=== PATIENT | female | born 2000 | race Caucasian/White ===

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

== ENCOUNTER → 2021-01-27 14:30 | Outpatient (CLI) | payer BC, OTHER, SELFPAY ==
--- NOTE | ~2021-01-27 | XR_ITS ---
EXAMINATION: XR chest 2V EXAM DATE: 01/27/2021 15:10 INDICATION: Tight chest, other chest pain . TECHNIQUE: Frontal and lateral projections of the chest obtained and reviewed. Comparison is made to prior examination from 10/22/2020. FINDINGS: Resolution of previously seen right upper lobe acute airspace disease. The lungs are clear . There are no pleural effusions. The cardiomediastinal silhouette is within normal limits. There is no pneumothorax suspected. The bones and soft tissues are unremarkable. IMPRESSION: No acute cardiopulmonary findings. Reviewed, dictated and finalized at location B.
== END ==
PROVIDERS: PCP Physician Assistant; Visit Provider Physician Assistant
DX: R07.89 Other chest pain (principal)
CPT/HCPCS: 71046

== ENCOUNTER 2021-05-17 12:19 | Emergency (ER) | payer BC, SELFPAY ==
--- NOTE | ~2021-05-17 | CT_ITS ---
EXAMINATION: CT abdomen pelvis w con DATE: 05/17/2021 19:24 INDICATION: Right lower quadrant abdominal pain. TECHNIQUE: Computed tomography (CT) of the abdomen and pelvis was performed with 100 mL Omnipaque-350 intravenous contrast. Automated exposure control and iterative reconstruction technique were employe d. The dose-length product was 515.29 mGy-cm. COMPARISON: None FINDINGS: Lung bases are clear. Heart size is normal. No pericardial or pleural effusion. Liver, gallbladder, s pleen, pancreas, bilateral adrenal glands and kidneys are normal. 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 Normal appendix. No bowel obstruction. Retroverted uterus, bilater al adnexa and decompressed bladder are unremarkable. Tiny amount of likely physiologic free fluid in the cul-de-sac. No abscess or free intraperitoneal gas. No pathologically enlarged abdominal or pelvi c lymphadenopathy. The major vessels in the abdomen and pelvis are unremarkable. Mild lumbar levocurv ature. Asymmetric bilateral sacroiliitis, left greater than right. IMPRESSION: 1. Normal appendix. No acute intra-abdominal/pelvic process. 2. Asymmetric left-sided predominant bilateral sacroiliitis. Differential would include psoriatic or reactive arthritis, gout and osteoarthritis. Differential would also include enteropathic arthritis i n severity of Crohn's or ulcerative colitis, ankylosing spondylitis and rheumatoid arthritis although these would typically be more symmetric. 3. Incidental intestinal malrotation without evident volvulus or obstruction. Reviewed, dictated and finalized at location A. INSTALLER IMPRESSION: 1. Normal appendix. No acute intra-abdominal/pelvic process. 2. Asymmetric left-sided predominant bilateral sacroiliitis. Differential would include psoriatic or reactive arthritis, gout and osteoarthritis. Differential would also include enteropathic arthritis in severity of Crohn's or ulcerative colitis, ankylosing spondylitis and rheumatoid arthritis although these would typically be more symmetric. 3. Incidental intestinal malrotation without evident volvulus or obstruction.
[2021-05-17 12:22] VITALS: BP 143/76; PULSE 82; RESP 18; TEMP 36.2; O2SAT 100
[2021-05-17 12:39] LABS: Basophils Absolute Auto 0.1 K/mm3 (0.0-0.1); Basophils Percent Auto 0.9 % (0.2-1.2); Eosinophils Absolute Auto 0.2 K/mm3 (0-0.3); Eosinophils Percent Auto 2.9 % (0-4.4); Hematocrit 42.1 % (37.0-47.0); Hemoglobin 14.2 g/dL (12.0-15.0); Immature Granulocyte Absolute 0.02 K/mm3 (0.00-0.031); Immature Granulocyte Percent A 0.3 % (0-0.5); Lymphocytes Absolute Auto 1.91 K/mm3 (0.9-3.2); Lymphocytes Percent Auto 24.3 % (18.3-44.2); Mean Corpuscular HGB Conc 33.7 g/dl (32-36); Mean Corpuscular Hemoglobin 28.2 pg (26-34); Mean Corpuscular Volume 83.7 fl (80-100); Mean Platelet Volume 9.7 fl (7.4-10.4); Monocytes Absolute Auto 0.4 K/mm3 (0.1-0.6); Monocytes Percent Auto 5.6 % (2.6-8.5); Neutrophils Absolute Auto 5.2 K/mm3 (1.3-6.7); Platelet Count Result 330 k/mm3 (150-375); Red Blood Count 5.03 M/mm3 (4.2-5.4); Red Cell Distribution Width 12.8 % (11.5-14.5); White Blood Count 7.9 K/mm3 (4.5-10.0)
[2021-05-17 12:51] LABS: Alanine Aminotransferase 20 U/L (4-35); Albumin Level 5.1 g/dL (3.7-5.6); Alkaline Phosphatase 67 U/L (45-116); Anion Gap 10 mmol/L (8-16); Aspartate Amino Transferase 25 U/L (14-36); Bilirubin,Total 0.5 mg/dL (0.2-1.3); Blood Urea Nitrogen 14 mg/dL (8-21); Calcium 9.9 mg/dL (8.9-10.7); Carbon Dioxide 26 mmol/L (22-30); Chloride 104 mmol/L (98-107); Estimated CRCL calculation 104 ml/min; Estimated Glomerular Filt Rate > 60; Glucose 101 mg/dL (65-110); Lipase 93 U/L (23-300); Potassium 3.8 mmol/L (3.4-5.0); Sodium 140 mmol/L (134-143)
[2021-05-17 13:11] LABS: Add Urine Microscopic? YES; Appearance Urine Clear (Clear); Bilirubin Urine Negative (Negative); Blood Urine 3+ (Negative); Color Urine Colorless (Yellow); Glucose Urine UA Negative (Negative); Ketones Urine Negative (Negative); Leukocyte Esterase Ur Negative LEU/UL (Negative); Nitrate Urine Negative (Negative); Protein Urine Negative (Negative); RBC Urine 0-2 /hpf (0-2); Urobilinogen Urine Negative mg/dL (<2.0); WBC Urine 0-3 /hpf
[2021-05-17 13:13] LABS: Specific Grav Ur 1.002 (1.001-1.035)
[2021-05-17 14:28] VITALS: BP 136/68; PULSE 72; RESP 18; O2SAT 100
[2021-05-17 18:01] VITALS: BP 132/83; PULSE 68; RESP 16; TEMP 36.9; O2SAT 97
[2021-05-17 19:00] VITALS: BP 131/84; PULSE 81; RESP 18; O2SAT 99
--- NOTE | 2021-05-17 19:10 | PC.NURSE ---
Report given to FLAQUITO Elaine
--- NOTE | 2021-05-17 19:26 | ED.GENADULT ---
HPI - General Adult General Chief complaint: Abdominal Pain Stated complaint: abdominal pain Time Seen by Provider: 05/17/21 18:08 Source: patient Mode of arrival: ambulatory Limitations: no limitations History of Present Illness HPI narrative: Patient [id number] female presented with chief complaint of right sided abdominal pain that began 3 days ago and has worsened today. Patient denies noticing any alleviating or worsening factors. Patient reports she has been able to eat and drink without worsening of her symptoms. She reports having some nausea that has dissipated and denies any vomiting or diarrhea. She denies any fevers or chills. She denies taking anything to alleviate her symptoms. Related Data Home Medications Medication Instructions Recorded Confirmed No Home Medications 05/17/21 05/17/21 Allergies Allergy/AdvReac Type Severity Reaction Status Date / Time No Known Allergies Allergy Mild Verified 05/17/21 19:00 Review of Systems Review of Systems: CONSTITUTIONAL: Denies fever, chills, or sweats. EYES: Denies visual changes, redness, or discharge. ENT: Denies rhinorrhea, congestion, sore throat, or otalgia. CARDIOVASCULAR: Denies chest pain, palpitations, or edema. RESPIRATORY: Denies cough or dyspnea. GASTROINTESTINAL: Reports abdominal pain, nausea, denies vomiting, or diarrhea. GENITOURINARY: Denies dysuria or hematuria. SKIN: Denies rash or itching. MUSCULOSKELETAL: Denies back pain, joint pain, or myalgia. NEUROLOGIC: Denies headache, numbness, dizziness, or weakness. PSYCHIATRIC: Denies anxiety or depression. [facility] Past Medical History Medical History No significant past medical history Surgical History Surgical History History of tonsillectomy Family History Family History Father Anxiety and depression Mother Hypertension Anxiety and depression Endometriosis hysterectomy in her 30s Sibling Anxiety and depression Grandparent Alcoholism Asthma Hypertension Anxiety and depression Heart problem Thyroid disorder Grandparent Alcoholism Diabetes mellitus Anxiety and depression Heart problem Social History Social History Smoking status: Never smoker Alcohol intake: never Substance use: never Gender identity (if verbalized by the patient): Female Exam Narrative: GENERAL: Well-appearing, well-nourished, and in no acute distress. Non toxic in appearance. Smiling and talking. HEAD: Normocephalic, atraumatic. EYES: PERRLA and EOMI. ENT: Nares clear, no rhinorrhea or epistaxis. Mucous membranes moist. Oropharynx without tonsillar hypertrophy exudate or other lesions. Bilateral TMs pearly sheridan nonbulging CHEST: Clear to auscultation. No respiratory distress. No wheezes rales or rhonchi HEART: Regular rate and rhythm. No murmur heard. Normal peripheral pulses. ABDOMEN: Soft, mild tenderness with palpation of right side of abdomen, nondistended, normal active bowel sounds. EXTREMITIES: Normal range of motion. No edema. SKIN: Warm, dry, no rash. NEURO: No focal deficits. Alert and oriented x3. PSYCH: Normal mood and affect. Course Vital Signs Vital signs: Vital Signs Temperature 97.1 F L 05/17/21 12:22 Pulse Rate 82 05/17/21 12:22 Respiratory Rate 18 05/17/21 12:22 Blood Pressure 143/76 H 05/17/21 12:22 Pulse Oximetry 100 05/17/21 12:22 Temperature 98.5 F 05/17/21 18:01 Pulse Rate 81 05/17/21 19:00 Respiratory Rate 18 05/17/21 19:00 Blood Pressure 131/84 05/17/21 19:00 Pulse Oximetry 99 05/17/21 19:00 Medical Decision Making [facility] Narrative Medical decision making narrative: Patient's labs are stable and her CT is negative for acute surgical abdomen findings. Di
[2021-05-17] MEDS: KETOROLAC 30 MG/ML VIAL (*BKC) IV PUSH (21:00)
[2021-05-17 21:18] VITALS: BP 135/90; PULSE 66; RESP 18; O2SAT 97
== END 2021-05-17 21:19 | disposition home or self-care (01) ==
PROVIDERS: Emergency Medicine; Emergency Provider Emergency Medicine; PCP Physician Assistant
DX: R10.9 Unspecified abdominal pain (principal); M46.1 Sacroiliitis, not elsewhere classified
CPT/HCPCS: 36415; 74177; 80053; 81001; 81025; 83690; 85025; 96374; 99284; J1885; Q9967

== ENCOUNTER 2021-07-17 02:12 | Emergency (ER) | payer BC, SELFPAY ==
[2021-07-17] VITALS (10 sets, daily range): BP systolic 109–142; BP diastolic 76–100; PULSE 71–92; RESP 14–22; TEMP 36.1; O2SAT 98–100
--- NOTE | ~2021-07-17 | XR_ITS ---
EXAMINATION: XR chest 1V portable 07/17/2021 03:25 INDICATION: Chest pain. Elevated d-dimer. PROCEDURE: AP portable chest COMPARISON: 01/27/2021 FINDINGS: The lungs are clear. The cardiomediastinal silhouette is within normal limits. There are no pleural effusions. There is no pneumothorax suspected. IMPRESSION: 1: NO ACUTE CARDIOPULMONARY DISEASE. Reviewed, dictated and finalized at location A. ITIONAL SERVICES HOST
--- NOTE | ~2021-07-17 | CT_ITS ---
EXAMINATION: CTA chest PE protocol DATE: 07/17/2021 14:13 SOCIAL SCIENCES DEPARTMENT CHAIR INDICATION: Left-sided chest pain. Elevated d-dimer. TECHNIQUE: Computed tomographic angiography (CTA) of the chest was performed with 100 mL Omnipaque-35 0 intravenous contrast. The dose-length product was 302.32 mGy-cm. Maximum intensity projection 3D-re constructions of the aorta and other arteries were constructed by the technologist on a separate work station. Automated exposure control and iterative reconstruction technique were employed. COMPARISON: CT dated 10/23/2020. FINDINGS: Study is technically adequate without evidence for pulmonary embolism. No evidence for aort ic aneurysm. Heart size normal. No significant pleural or pericardial effusion. No endobronchial lesi ons. No focal airspace disease. No pneumothorax. No endobronchial lesions. No thoracic lymphadenopath y. There is an aberrant right subclavian artery. Upper abdomen is unremarkable. IMPRESSION: 1. No acute cardiopulmonary disease. No evidence for pulmonary embolism. Reviewed, dictated and finalized at location A. AL SCIENCES DEPARTMENT CHAIR
--- NOTE | 2021-07-17 03:15 | ECG_ITS ---
Measurements Intervals [place] Rate: 73 P: 60 [place]: 145 QRS: 71 QRSD: 80 T: 39 QT: 389 QTc: 430 Interpretive Statements SINUS RHYTHM BASELINE ARTIFACT- V3 NORMAL ECG Electronically Signed On 07-17-2021 6:00:03 MORTAR WORKER by Juan C Quispe D.O.
--- NOTE | 2021-07-17 03:33 | ED.GENADULT ---
HPI - General Adult General Chief complaint: Unspecified Stated complaint: COVID +, lung pain Time Seen by Provider: 07/17/21 03:03 History of Present Illness HPI narrative: Patient is a 20-year-old female who presents the emergency department with chief complaint of chest discomfort. Patient reports she was diagnosed with COVID-19 this week and reports that started having discomfort in the left side of her chest. Patient states it is a burning-like sensation reports that it is worse whenever she takes a deep breath patient states is not improved by anything reports that she does take control pills but has never had any history of thromboembolic disease. The patient reports she has not done anything for the cough has not used an inhaler. Patient reports that she is unvaccinated Related Data Allergies Allergy/AdvReac Type Severity Reaction Status Date / Time No Known Allergies Allergy Mild Verified 07/17/21 02:36 Review of Systems Review of Systems: A 10 system review of systems was completed on the patient and is negative except for what is stated in the HPI. Nursing and ancillary documentation was reviewed. PMFSH Past Medical History Medical History No significant past medical history Surgical History Surgical History History of tonsillectomy Family History Family History Father Anxiety and depression Mother Hypertension Anxiety and depression Endometriosis hysterectomy in her 30s Sibling Anxiety and depression Grandparent Alcoholism Asthma Hypertension Anxiety and depression Heart problem Thyroid disorder Grandparent Alcoholism Diabetes mellitus Anxiety and depression Heart problem Social History Social History Smoking status: Never smoker Alcohol intake: never Substance use: never Gender identity (if verbalized by the patient): Female Exam Narrative: GENERAL: Well-appearing, well-nourished, and in no acute distress. HEAD: Normocephalic, atraumatic. EYES: PERRLA and EOMI. ENT: Nares clear, no rhinorrhea or epistaxis. Mucous membranes moist. NECK: Supple. CHEST: Clear to auscultation. No respiratory distress. HEART: Regular rate and rhythm. No murmur heard. Normal peripheral pulses. ABDOMEN: Soft, nontender, nondistended, normal active bowel sounds. EXTREMITIES: Normal range of motion. No edema. SKIN: Warm, dry, no rash. NEURO: No focal deficits. Alert and oriented x3. PSYCH: Normal mood and affect. Course Course Emergency Course: EKG sinus rhythm rate of [address] elevation or ST depression Chest x-ray shows no evidence of focal infiltrate Vital Signs Vital signs: Vital Signs Temperature 36.1 C L 07/17/21 02:15 Pulse Rate 76 07/17/21 02:15 Respiratory Rate 18 07/17/21 02:15 Blood Pressure 142/89 H 07/17/21 02:15 Pulse Oximetry 99 07/17/21 02:15 Temperature 36.1 C L 07/17/21 02:15 Pulse Rate 71 07/17/21 05:16 Respiratory Rate 18 07/17/21 05:16 Blood Pressure 122/82 07/17/21 05:16 Pulse Oximetry 99 07/17/21 05:16 Medical Decision Making Vital Signs Vital Signs: Vital Signs Temperature 36.1 C L 07/17/21 02:15 Pulse Rate 76 07/17/21 02:15 Respiratory Rate 18 07/17/21 02:15 Blood Pressure 142/89 H 07/17/21 02:15 Pulse Oximetry 99 07/17/21 02:15 Temperature 36.1 C L 07/17/21 02:15 Pulse Rate 71 07/17/21 05:16 Respiratory Rate 18 07/17/21 05:16 Blood Pressure 122/82 07/17/21 05:16 Pulse Oximetry 99 07/17/21 05:16 Lab Data Result diagrams: 07/17/21 03:36 07/17/21 03:36 Labs: Lab Results 07/17/21 07/17/21 07/17/21 Range/Units 03:36 03:36 03:36 WBC 8.7 (4.5-10.0) K/mm3 RBC 4.91 (4.2-5.
[2021-07-17] MEDS: ALBUTEROL SULFATE (*SP) INHALER 2 PUFF INHALATION (03:36)
[2021-07-17 03:41] LABS: Basophils Percent Auto 0.3 % (0.2-1.2); Eosinophils Absolute Auto 0.5 K/mm3 (0-0.3); Eosinophils Percent Auto 5.9 % (0-4.4); Hematocrit 41.8 % (37.0-47.0); Hemoglobin 13.8 g/dL (12.0-15.0); Immature Granulocyte Absolute 0.02 K/mm3 (0.00-0.031); Immature Granulocyte Percent A 0.2 % (0-0.5); Lymphocytes Absolute Auto 2.64 K/mm3 (0.9-3.2); Lymphocytes Percent Auto 30.3 % (18.3-44.2); Mean Corpuscular Hemoglobin 28.1 pg (26-34); Mean Corpuscular Volume 85.1 fl (80-100); Mean Platelet Volume 10.5 fl (7.4-10.4); Monocytes Absolute Auto 0.6 K/mm3 (0.1-0.6); Neutrophils Absolute Auto 4.9 K/mm3 (1.3-6.7); Neutrophils Percent Auto 56.3 % (45.5-73.1); Platelet Count Result 293 k/mm3 (150-375); Red Blood Count 4.91 M/mm3 (4.2-5.4); Red Cell Distribution Width 12.8 % (11.5-14.5); White Blood Count 8.7 K/mm3 (4.5-10.0)
[2021-07-17] MEDS: SODIUM CHLORIDE 0.9% IV 1,000 ML 999 ML IV CONT (03:58)
[2021-07-17] MEDS: KETOROLAC 30 MG/ML VIAL (*BKC) IV PUSH (04:00)
[2021-07-17 04:07] LABS: NT Pro B Type Natriuretic Pept 26 pg/mL (5-100); Troponin I < 0.012 ng/mL (0.000-0.034)
[2021-07-17 04:09] LABS: INR 0.9; Prothrombin Time 12.5 Seconds (11.1-14.7)
[2021-07-17 04:10] LABS: Partial Thromboplastin Time 27.5 SECONDS (22.3-36.8)
[2021-07-17 04:12] LABS: D Dimer 1.27 ug/mL (<0.48)
[2021-07-17 04:13] LABS: Alanine Aminotransferase 19 U/L (4-35); Albumin Level 4.5 g/dL (3.7-5.6); Alkaline Phosphatase 55 U/L (45-116); Anion Gap 9 mmol/L (8-16); Aspartate Amino Transferase 27 U/L (14-36); Bilirubin,Total 0.3 mg/dL (0.2-1.3); Blood Urea Nitrogen 10 mg/dL (8-21); Calcium 8.9 mg/dL (8.9-10.7); Carbon Dioxide 25 mmol/L (22-30); Chloride 103 mmol/L (98-107); Estimated CRCL calculation 136 ml/min; Estimated Glomerular Filt Rate > 60; Glucose 92 mg/dL (65-110); Lipase 109 U/L (23-300); Potassium 4.1 mmol/L (3.4-5.0); Sodium 137 mmol/L (134-143)
[2021-07-17 04:15] LABS: Add Urine Microscopic? NO; Appearance Urine Clear (Clear); Bilirubin Urine Negative (Negative); Blood Urine Negative (Negative); Color Urine Yellow (Yellow); Glucose Urine UA Negative (Negative); Ketones Urine Negative (Negative); Leukocyte Esterase Ur Negative LEU/UL (Negative); Nitrate Urine Negative (Negative); Protein Urine Negative (Negative); Specific Grav Ur 1.017 (1.001-1.035); Urobilinogen Urine Negative mg/dL (<2.0)
--- NOTE | 2021-07-17 04:30 | PC.NURSE ---
Pt to CT at this time.
== END 2021-07-17 06:08 | disposition home or self-care (01) ==
PROVIDERS: Emergency Provider Emergency Medicine; PCP Physician Assistant
DX: U07.1 COVID-19 (principal); R07.89 Other chest pain
CPT/HCPCS: 36415; 71045; 71275; 80053; 81003; 81025; 83690; 83880; 84484; 85025; 85380; 85610; 85730; 93005; 94640; 96361; 96374; 99284; A9270; J1885; J7030; Q9967

== ENCOUNTER 2022-06-20 10:48 | Emergency (ER) | payer OTHER, SELFPAY ==
--- NOTE | 2022-06-20 11:29 | ED.URI ---
HPI - URI/Sore Throat General Chief Complaint: Upper Respiratory Infection Stated Complaint: sorethroat Time Seen by Provider: 06/20/22 11:30 History of Present Illness HPI Narrative: 21-year-old female presented with c/o sore throat for 2 days. 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 She currently denies sinus pressure, congestion, nausea, vomiting, diarrhea, fevers or chills. Related Data Home Medications Medication Instructions Recorded Confirmed bupropion HCl 100 mg tablet 100 mg PO DAILY 06/20/22 06/20/22 Allergies Allergy/AdvReac Type Severity Reaction Status Date / Time No Known Allergies Allergy Mild Verified 06/20/22 11:17 Review of Systems Review of Systems: CONSTITUTIONAL: Denies body aches, fever, chills, or sweats. EYES: Denies visual changes, redness, or discharge. ENT: Denies rhinorrhea, congestion, or otalgia. CARDIOVASCULAR: Denies chest pain, palpitations, or edema. RESPIRATORY: Denies dyspnea. GASTROINTESTINAL: Denies abdominal pain, nausea, vomiting, or diarrhea. SKIN: Denies rash, itching, or wounds. MUSCULOSKELETAL: Denies back pain, joint pain, or myalgia. NEUROLOGIC: Denies headache PMFSH Past Medical History Medical History No significant past medical history Surgical History Surgical History History of tonsillectomy Family History Family History Father Anxiety and depression Mother Hypertension Anxiety and depression Endometriosis hysterectomy in her 30s Sibling Anxiety and depression Grandparent Alcoholism Asthma Hypertension Anxiety and depression Heart problem Thyroid disorder Grandparent Alcoholism Diabetes mellitus Anxiety and depression Heart problem Social History Social History Smoking status: Never smoker Alcohol intake: never Substance use: never Gender identity (if verbalized by the patient): Female Exam Narrative: GENERAL: well-appearing, no acute distress. EYES: conjunctivae clear ENT: Mucous membranes moist. TMs pearly sheridan with normal light reflex bilaterally; no tragal tenderness. Oropharynx mildly erythematous without lesions. Tonsils absent. No drooling, no hoarseness, no trismus, uvula midline. No tripod positioning, hot potato voice, or soft palate swelling. NECK: Supple. No lymphadenopathy CHEST: Clear to auscultation, breath sounds equal. HEART: Regular rate and rhythm. No murmur heard. SKIN: Warm, dry, no rash. NEURO: Alert and oriented x3. Course Course Emergency Course: Patient is aware of diagnosis, understands and agrees to treatment plan. Anticipatory guidance given. Patient agrees to follow-up as directed and is aware of reasons to seek care at the emergency department. Portions of this record may have been created with voice recognition software Level of Care: Express Care Visit MDM - URI/Sore Throat MDM Narrative Medical decision making narrative: Due to lack of resources, unable to test for Rapid strep at this time. will send for culture and await results for treatment. Patient verbalizes understanding. Advised supportive measures and signs and symptoms to go to the ER. Patient is appropriate for outpatient treatment and follow-up. Differential Diagnosis Differential diagnosis: Likely upper respiratory infection, viral infection and pharyngitis Discharge Plan Discharge Clinical Impression: Pharyngitis Patient Disposition: Home, Self-Care Condition: Stable Instructions: Antibiotic Form, Pharyngitis (ED) Additional Instructions: You will be notified in a few days if the culture comes back positive for strep, and appropriate antibiotics will be call
[2022-06-20 11:47] VITALS: BP 143/90; PULSE 82; RESP 18; TEMP 36.2; O2SAT 100
== END 2022-06-20 11:43 | disposition home or self-care (01) ==
PROVIDERS: Emergency Provider Nurse Practitioner Family; PCP Physician Assistant
DX: J02.9 Acute pharyngitis, unspecified (principal)
CPT/HCPCS: 87081; 99212; G0463

== ENCOUNTER 2022-12-27 00:32 | Emergency (ER) | payer OTHER, SELFPAY ==
[2022-12-27 00:32] VITALS: BP 149/93; PULSE 90; RESP 18; TEMP 37.1; O2SAT 98
--- NOTE | 2022-12-27 01:13 | ED.URI ---
HPI - URI/Sore Throat General Chief Complaint: Upper Respiratory Infection <Tere Trujillo PA-C - Last Filed: 12/27/22 03:15> Stated Complaint: sore throat, cough, congestion <Tere Trujillo PA-C - Last Filed: 12/27/22 03:15> Time Seen by Provider: 12/27/22 00:44 <Tere Trujillo PA-C - Last Filed: 12/27/22 03:15> History of Present Illness HPI Narrative: 22-year-old female reports for evaluation for a sore throat x2 and half weeks. Reports the sore throat is a sharp sensation, worse with swallowing. Patient states she had a sore throat for about a week, called her PCP who prescribed her amoxicillin. Patient states she took the amoxicillin for 7 days with improvement of sore throat, however the sore throat returned 3 to 4 days ago. She states she called her PCP again who prescribed her an antibiotic that starts with a C, however the patient does not know the name of the antibiotic. States she took 3 doses of the antibiotic without improvement, therefore came to the ED. She reports a cough that was worse at the onset of symptoms and has since improved. Denies nasal congestion. Denies fever, n/v, ear pain. <VALENTINO He Last Filed: 12/27/22 03:15> Related Data Home Medications: Home Medications Medication Instructions Recorded Confirmed bupropion HCl 100 mg tablet 100 mg PO DAILY 06/20/22 06/20/22 <Tere Trujillo PA-C - Last Filed: 12/27/22 03:15> Allergies/Adverse Reactions: Allergies Allergy/AdvReac Type Severity Reaction Status Date / Time No Known Allergies Allergy Mild Verified 06/20/22 11:17 <VALENTINO He Last Filed: 12/27/22 03:15> Review of Systems Review of Systems: CONSTITUTIONAL: Denies fever, chills EYES: Denies visual changes, redness, or discharge. ENT: See HPI CARDIOVASCULAR: Denies chest pain, palpitations, or edema. RESPIRATORY: Denies cough or dyspnea. GASTROINTESTINAL: Denies abdominal pain, nausea, vomiting, or diarrhea. GENITOURINARY: Denies dysuria or hematuria. SKIN: Denies rash or itching. MUSCULOSKELETAL: Denies back pain, joint pain, or myalgia. NEUROLOGIC: Denies headache, numbness, dizziness, or weakness. PSYCHIATRIC: Denies anxiety or depression. <Tere Trujillo PA-C - Last Filed: 12/27/22 03:15> [facility] Past Medical History Medical History: Medical History No significant past medical history <Tere Trujillo PA-C - Last Filed: 12/27/22 03:15> Surgical History Surgical History: Surgical History History of tonsillectomy <Tere Trujillo PA-C - Last Filed: 12/27/22 03:15> Family History Family History: Family History Father Anxiety and depression Mother Hypertension Anxiety and depression Endometriosis hysterectomy in her 30s Sibling Anxiety and depression Grandparent Alcoholism Asthma Hypertension Anxiety and depression Heart problem Thyroid disorder Grandparent Alcoholism Diabetes mellitus Anxiety and depression Heart problem <Tere Trujillo PA-C - Last Filed: 12/27/22 03:15> Social History Social History: Social History Smoking status: Never smoker Alcohol intake: never Substance use: never Gender identity (if verbalized by the patient): Female <Tere Trujillo PA-C - Last Filed: 12/27/22 03:15> Exam Narrative: GENERAL: Well-appearing, in no acute distress. HEAD: Normocephalic EYES: PERRLA ENT: Nares clear. Mucous membranes moist. S/p tonsillectomy. Mild eythema to posterior pharynx. No exudates or petechiae. No uvular edema. NECK: Supple. No lymphadenopathy appreciated. CHEST: No respiratory distress. Clear to auscultation, no adventitious breath sounds. HEART: Regular rate an
[2022-12-27] MEDS: ACETAMINOPHEN 500 MG TABLET 1000 MG PO (01:34)
[2022-12-27 02:23] LABS: Influenza A QL RT-PCR Negative (Negative); Influenza B QL RT-PCR Negative (Negative); SARS-CoV-2 RNA PCR Negative (Negative)
[2022-12-27 03:35] LABS: Monoscreen Negative (Negative); Negative Monotest Control Negative (Negative); Positive Monotest Control Positive (Positive)
[2022-12-27 03:40] VITALS: BP 123/80; PULSE 81; RESP 12; O2SAT 100
[2022-12-27 04:51] LABS: Strep Group A RT-PCR NOT DETECTED (Negative)
== END 2022-12-27 03:50 | disposition home or self-care (01) ==
PROVIDERS: Emergency Provider Physician Assistant; PCP Physician Assistant
DX: J02.9 Acute pharyngitis, unspecified (principal); Z20.822 Contact with and (suspected) exposure to COVID-19
CPT/HCPCS: 36415; 86308; 87636; 87651; 96372; 99283; A9270; J1100

== ENCOUNTER 2024-06-27 10:16 | Outpatient (CLI) | payer BC, SELFPAY ==
--- NOTE | ~2024-06-27 | US_ITS ---
US pelvic complete Ordering provider: Renita Manrique MD History: . Dysmenorrhea . Comparison: None. Technique: Transabdominal and endovaginal ultrasound of the pelvis (Doppler ultrasound interrogation techniques used as needed for this exam.) FINDINGS: CERVIX: Normal. UTERUS: Measures 7x 3.3x 5.1 cm in length which is within normal limits and is anteverted. No myomet rial masses. ENDOMETRIUM: Normal in thickness measuring 5 mm. No endometrial masses, cysts or fluid. CUL DE SAC: No free fluid. RIGHT OVARY: Normal in size measuring 2.4x 2.8x 2.4 cm. Normal echotexture. Doppler vascular flow pre sent. LEFT OVARY: Normal in size measuring 3.3x 2.3x 3.9 cm. Normal echotexture. Doppler vascular flow pres ent. ADNEXA: Normal. No mass. IMPRESSION: normal pelvic ultrasound. Reviewed, dictated and finalized at location A. UNITY MARKETING COORDINATOR IMPRESSION: normal pelvic ultrasound.
== END 2024-06-27 10:17 | disposition home or self-care (01) ==
LOC: MICIMG 10:17
PROVIDERS: PCP Physician Assistant; Visit Provider Obstetrics & Gynecology Gynecology
DX: N94.6 Dysmenorrhea, unspecified (principal)
CPT/HCPCS: 76856

== ENCOUNTER 2025-02-09 02:51 | Emergency (ER) | payer BC, SELFPAY ==
--- OUTSIDE RECORDS SUMMARY | 2025-02-09 02:53 | XMS_ITS | Clinical Summary ---
Author Organization [facility] Address [address] [place] [address] Care Team Providers Care Axminster Weaver Name Role Phone Unavailable Primary Care Provider Unavailabl e Source Comments [facility] [employer],non-owned Affiliates and Associated Physician Practices is amultiple site organization consisting of ambulatory clinics and hospital sitesin [place], [place], [place] and [place]. This disclosure is being madepursuant to the Care Everywhere program and may not contain all information available regarding this patient. 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 Gender Identity Not on file Sexual Orientation Not on file Plan of Treatment Health Maintenance Due Date Last Done Comments HIV SCREENING 2016 HPV VACCINE (1 - 3-dose series) 2016 CHLAMYDIA/GONORRHEA SCREENING 2017 MENINGOCOCCAL (Group B) VACC INE SHARED DECISION-MAKING (1 of 2 - Standard) 2017 HEPATITIS C SCREENING 11/17/2019 DTAP/TDAP/TD VACCINES (1 - Tdap) 2020 HEPATITIS B VACCINE (1 of 3 - 19+ 3-dose series) 2020 COVID-19 VACCINE (1 - 2023-2 5 season) 2024 DEPRESSION SCREENING 07/03/2024 INFLUENZA VACCINE (#1) 2025 ZOSTER VACCINE (1 of 2) 11/22/2051 HIB VACCINE Aged Out No longer eligi ble based on patient's age to complete this topic MENINGOCOCCAL GROUPS A/C/Y/W VACCINE Aged Out No longer eligible b ased on patient's age to complete this topic PNEUMOCOCCAL VACCINE Aged Out No long er eligible based on patient's age to complete this topic
--- OUTSIDE RECORDS SUMMARY | 2025-02-09 02:53 | XMS_ITS | Clinical Summary ---
Author Organization [facility] Address [address] [place] [id number] Care Team Providers Care Card Cleaner Name Role Phone Kenia Yap Primary Care Provider Allergies No known active allergies Encounters Date Type Department Care Team Description 01/08/2025 3:10 PM CDT - 01/08/2025 4:50 PM CDT Emergency [facility] [place] [address] Emery Allen PA Chest Pain Discharge Disposition: Home or Self Care (Routine Discharge) 01/08/2025 Travel from Last 3 Months Social History Tobacco Use Types Packs/Day Years Used Date Smoking Tobacco: Never Smokeless Tobacco: Never Tobacco Cessation:Counseling Given: Not Answered Alcohol Use Standard Drinks/Week Comments Not Currently 0 (1 standard drink = 0.6 oz pur e alcohol) Comments No Sex and Gender Information Value Date Recorded Sex Assigned at Not on file Legal Sex Female 2:59 PM CDT Gender Identity Not on file Sexual Orientation Not on file Last Filed Vital Signs Vital Sign Reading Time Taken Comments Blood Pressure 157/118 01/08/2025 3:09 PM CDT Pulse 82 01/08/2025 3:09 PM CDT Temperature 37 C (98.6 F) 01/08/2025 3:09 PM CDT Respiratory Rate 16 01/08/2025 3:09 PM CDT Oxygen Saturation 98% 01/08/2025 3:09 PM CDT Inhaled Oxygen Concentration - - Weight 90.7 kg (200 lb) 01/08/2025 3:09 PM CDT Height 165.1 cm (5' 5) 01/08/2025 3:09 PM CDT Body Mass Index 33.28 01/08/2025 3:09 PM CDT Plan of Treatment Health Maintenance Due Date Last Done Comments Cervical Cancer Screening Pap Smear (Age 21 to 29) Every 3 Years 2001 Cervical Cancer Screening 2001 Annual Physical 2004 HPV Vaccines (1 - 3-dose series) 2016 Meningococcal B Vaccine (1 of 2 - Standard) 2017 Hepatitis C 11/22/2019 COVID-19 Vaccine ( season) 2024 DTaP, Tdap and Td Vaccines (10 - Td or Tdap) 12/20/2034 12/20/2024, 10/10/2020, 03/08/2013, Additional history exists Hepatitis B Vaccines Completed 11/26/2002, 04/09/2002, 02/01/2002 Pneumococcal Vaccine: Pediatrics (0 to 5 Years) and At-Risk Patients (6 to 49 Years) Completed 11/26/2002, 06/06/2002, 04/09/2002, Additional history exists Meningococcal Vaccine Aged Out 03/08/2013 No alysa ernestina eligible based on patient's age to complete this topic RSV Immunizations Under 20 Months Aged Out No longer eligible based on patient's age to complete this topic Procedures Procedure Name Priority Date/Time Associated Diagnosis Comments XR CHEST PORTABLE STAT 01/08/2025 4:1 2 PM CDT POCT URINE (BACK OFFICE) STAT 01/08/2025 4:04 PM CDT TROPONIN, QUANT STAT 01/08/2025 3:08 PM CDT CBC W/DIFF AUTOMATED STAT 01/08/2025 3:08 PM CDT D-DIMER, QUANTITATIVE STAT 01/08/2025 3:08 PM CDT COMPREHENSIVE METABOLIC PANEL STAT 01/08/2025 3:08 PM CDT ECG 12-LEAD STAT 01/08/2025 3:01 PM CDT from Last 3 Months Results * XR CHEST PORTABLE (01/08/2025 4:12 PM CDT) Anatomical Region Laterality Modality Chest Radiographic Federica ging 01/08/2025 4:17 PM CDT Impressions 01/08/2025 4:19 PM CDT IMPRESSION: No acute pulmonary infiltrate or consolidation. Ordered By: EMERY ALLEN Interpreted By: Danny Cardoso, 01/08/2025 4:17 PM Narrative 01/08/2025 4:19 PM [address] [address] IMAGING STUDIES: XR CHEST PORTABLE DATE: 01/08/2025 4:01 PM HISTORY: cp 24-year-old female. Left chest pain (under her breast) that started 2 days ago and radiates to her left arm. No shortness of breath or pleuritic pain. COMPARISON: None this institution. DISCUSSION: Portable AP upright view of the chest. Heart size is within normal limits. No acute pulmonary vascular congestion. No acute pulmonary infiltrate, pulmonary consolidation, pleural effusion, or pneumothorax. No acute skeletal abnormality. Procedure Note Danny Cardoso MD - 01/08/[address] [address] IMAGING STUDIES: XR CHEST PORTABLEDATE: 01/08/2025 4:01 PM HISTORY: cp 24-year-old female. Left chest pain (under her breast)that started 2 days ago and radiates to her left arm. No shortness ofbreath or pleuritic pain. COMPARISON: None this institution. DISCUSSION: Portable AP upright view of the chest. Heart size is within normal limits. No acute pulmonary vascularcongestion. No acute pulmonary infiltrate, pulmonary consolidation, pleural effusion,or pneumothorax. No acute skeletal abnormality. IMPRESSION: No acute pulmonary infiltrate or consolidation. Ordered By: EMERY ALLEN Interpreted By: Danny Cardoso, 01/08/2025 4:17 PM [facility] Final Resu lt * POCT urine (01/08/2025 4:04 PM CDT) [facility] URINE HCG TEST NEGATIVE Internal Control: VALID 01/08/2025 4:04 PM CDT [facility] POINT OF CARE TEST ORDERAB LES Final Result * (ABNORMAL) COMPREHENSIVE METABOLIC PANEL (01/08/2025 3:08 PM CDT) [facility] GLUCOSE 83 70 - 99 MG/DL 01/08/2025 3:47 PM CDT [facility] BUN 16 7 - 18 MG/DL 01/08/2025 3:47 PM CDT [facility] CREATININE S/P/B 1.00 0.55 - 1.02 MG/DL 01/08/2025 3:47 PM CDT [facility] SODIUM S/P/B 136 136 - 145 MMOL/L 01/08/2025 3:47 PM CDT [facility] POTASSIUM S/P/B 3.7 3.5 - 5.1 MMOL/L 01/08/2025 3:47 PM CDT [facility] CHLORIDE S/P/B 104 97 - 115 MMOL/L 01/08/2025 3:47 PM CDT [facility] CO2 23.7 21 - 32 MMOL/L 01/08/2025 3:47 PM CDT [facility] CALCIUM S/P/B 9.6 8.5 - 10.1 MG/DL 01/08/2025 3:47 PM CDT [facility] BILIRUBIN TOTAL S/P/B 0.4 0.2 - 1.2 MG/DL 01/08/2025 3:47 PM CDT [facility] Comment: THIS ASSAY IS NOT RECOMMENDED FOR PATIENTS UNDERGOING TREATMENT WITH ELTROMBOPAG DUE TO THE POTENTIAL FOR FALSELY ELEVATED RESULTS. TOTAL PROTEIN S/P/B 8.4(H) 6.4 - 8.2 G/DL 01/08/2025 3:47 PM CDT [facility] ALBUMIN S/P/B 4.5 3.4 - 5.0 G/DL 01/08/2025 3:47 PM CDT [facility] AST 15 15 - 37 U/L 01/08/2025 3:47 PM CDT [facility] ALT 23 14 - 55 U/L 01/08/2025 3:47 PM CDT [facility] ALKALINE PHOSPHATASE S/P/B 61 50 - 136 U/L 01/08/2025 3:47 PM CDT [facility] ANION GAP 8.3 2 - 10 MMOL/L 01/08/2025 3:47 PM CDT [facility] BUN CREATININE RATIO 16.0 6 - 26 01/08/2025 3:47 PM CDT [facility] A/G RATIO 1.2 1.0 - 2.0 RATIO 01/08/2025 3:47 PM CDT [facility] GFR ESTIMATE 81(L) >90 ML/MIN/1.7 3 M2 01/08/2025 3:47 PM CDT [facility] Comment: NOTE: eGFR is not calculated for patients <18 years of age or gender unknown. This is an estimated GFR calculation using the new CKD EPI creatinine equation without race and so does not require a correction factor for race. This estimated GFR should not be used for calculating drug doses. 01/08/2025 3:08 PM CDT us [facility] Final Resu lt [facility] [address] [place] [address], * D-DIMER, QUANTITATIVE (01/08/2025 3:08 PM CDT) D-DIMER <215 0 - 500 ng{FEU}/mL 01/08/2025 4:13 PM CDT [facility] Comment: D-Dimer values less than or equal to 500 ng/mL FEU have a negative predictive value of >95% for exclusion of deep vein thrombosis and pulmonary embolism. In patients over 50 (who tend to have higher normal baseline D-Dimer values), recent studies suggest age-adjusted D-Dimer cutoff values (calculated as: age [years] x 10 ng/mL) result in equivalent outcomes and no additional false negative findings. 01/08/2025 3:08 PM CDT [facility] Final Resu lt [facility] [address] [place] [address], * (ABNORMAL) CBC W/DIFF AUTOMATED (01/08/2025 3:08 PM CDT) WBC 13.03(H) 4.5 - 11.0 x10'3/uL 01/08/2025 3:37 PM CDT [facility] RBC 5.09 4.20 - 5.40 x10'6/uL 01/08/2025 3:37 PM CDT [facility] HGB 14.3 12.0 - 16.0 G/DL 01/08/2025 3:37 PM CDT [facility] HCT 42.6 38.0 - 48.0 % 01/08/2025 3:37 PM CDT [facility] MCV 83.7 81.0 - 99.0 FL 01/08/2025 3:37 PM CDT [facility] MCH 28.1 27.0 - 31.0 PG 01/08/2025 3:37 PM CDT [facility] MCHC 33.6 32.0 - 36.0 G/DL 01/08/2025 3:37 PM CDT [facility] RDW 12.4 11.5 - 14.5 % 01/08/2025 3:37 PM CDT [facility] PLT 404(H) 130 - 400 x10'3/uL 01/08/2025 3:37 PM CDT [facility] MPV 10.0 9.3 - 12.2 FL 01/08/2025 3:37 PM CDT [facility] DIFFERENTIAL TYPE AUTOMATED DIFFERENTIAL 01/08/2025 3:37 PM CDT [facility] NEUTROPHILS % 77.2 % 01/08/2025 3:37 PM CDT [facility] LYMPHOCYTES % 16.0 % 01/08/2025 3:37 PM CDT [facility] MONOCYTES % 4.8 % 01/08/2025 3:37 PM CDT [facility] EOSINOPHILS 1.3 % 01/08/2025 3:37 PM CDT [facility] BASOPHILS 0.4 % 01/08/2025 3:37 PM CDT [facility] IMMATURE GRANS % 0.3 % 01/09/20 3:37 PM CDT [facility] ABS. NEUTROPHILS 10.05(H) 1.80 - 7.70 x10'3/uL 01/08/2025 3:37 PM CDT [facility] ABS. LYMPHOCYTES 2.09 1.00 - 4.80 x10'3/uL 01/08/2025 3:37 PM CDT [facility] ABS. MONOCYTES 0.63 0.24 - 0.86 x10'3/uL 01/08/2025 3:37 PM CDT [facility] ABS. EOSINOPHILS 0.17 0.04 - 0.36 x10'3/uL 01/08/2025 3:37 PM CDT [facility] ABS. BASOPHILS 0.05 0.01 - 0.08 x10'3/uL 01/08/2025 3:37 PM CDT [facility] ABS. IMMATURE GRANULOCYTES 0.04 0.00 - 0.49 x10'3/uL 01/08/2025 3:37 PM CDT [facility] 01/08/2025 3:08 PM CDT [facility] Final Resu lt [facility] [address] [place] [address], [place] [phone] * TROPONIN, QUANT (01/08/2025 3:08 PM CDT) TROPONIN I HIGH SENSITIVITY <3 <54 ng/L 01/08/2025 3:47 PM CDT [facility] Comment: HIGH DOSES OF BIOTIN, TROPONIN-SPECIFIC AUTOANTIBODIES, AND ANTIBODY THERAPY CONTAINING HAMA MAY INTERFERE WITH THIS TEST RESULT. CORRELATION TO CLINICAL HISTORY AND PRESENTATION RECOMMENDED. 01/08/2025 3:08 PM CDT [facility] Final Resu lt [facility] [address] [place] [address], [place] [phone] * ECG 12 lead (01/08/2025 3:01 PM CDT) 01/08/2025 3:01 PM CDT Narrative [facility] - 01/09/2025 3:[address] [facility] [address] Test Date: 2025-01-08 Pat Name: ALAN MORGAN Department: 41 Room: EXAM23 Gender: F Cafeteria Manager: : 2000 Requested By: EMERY ALLEN Order Number: [id number] Reading MD: Lynn Saxena Measurements Intervals [place] Rate: 75 P: 63 FL: 133 QRS: 64 QRSD: 84 T: 54 QT: 385 QTc: 431 Interpretive Statements SINUS RHYTHM No previous ECG available for comparison Procedure Note Lynn Saxena MD - 01/09/2025 [facility] [address] Test Date: 2025-01-08 Pat Name: ALAN MORGAN Department: 41 Room: EXAM23 Gender: F Cafeteria Manager: : 2000 Requested By: EMERY ALLEN Order Number: [id number] Reading MD: Lynn Saxena Measurements Intervals [place] Rate: 75 P: 63 FL: 133 QRS: 64 QRSD: 84 T: 54 QT: 385 QTc: 431 Interpretive Statements SINUS RHYTHM No previous ECG available for comparison us [facility] ECG ORDERABLES Final Resu lt [facility] from Last 3 Months Insurance [facility] Care Teams Card Cleaner Relationship Specialty Start Date End Date Kenia Yap PA [address] [place] [address] PCP - General PHYSICIAN CREW MEMBER 01/08/25
[2025-02-09 02:54] VITALS: BP 151/99; PULSE 74; RESP 17; TEMP 36.6; O2SAT 99
--- NOTE | 2025-02-09 03:19 | ED_ITS ---
HPI - Dental/Oral General Chief complaint: Dental/Oral Stated complaint: R lower dental pain Time Seen by Provider: 02/09/25 02:57 History of Present Illness HPI Narrative: 24-year-old female presenting with dental pain. She has right lower dental pain where her premolar was them to the localized. She has a tooth extraction scheduled for Monday this week but states heard ibuprofen and Tylenol are not helping with her pain. In triage she endorsed the pain was so bad she felt suicidal but adamantly denies any suicidal ideation and states she loves her life. She states that she does need something for pain control. She has a dentist appointment Monday. No other systemic symptoms. Otherwise doing well. Related Data Home Medications ?Medication ?Instructions ?Recorded ?Confirmed ?Last Taken ?Type bupropion HCl 100 mg tablet 100 mg PO DAILY 06/20/22 06/20/22 Unknown History Allergies Allergy/AdvReac Type Severity Reaction Status Date / Time No Known Allergies Allergy Mild Verified 02/09/25 02:57 Review of Systems Review of Systems: As reviewed above in HPI [facility] Past Medical History Medical History No significant past medical history Surgical History Surgical History History of tonsillectomy Family History Family History Father Anxiety and depression Mother Hypertension Anxiety and depression Endometriosis hysterectomy in her 30s Sibling Anxiety and depression Grandparent Alcoholism Asthma Hypertension Anxiety and depression Heart problem Thyroid disorder Grandparent Alcoholism Diabetes mellitus Anxiety and depression Heart problem Social History Social History Smoking status: Never smoker Alcohol intake: never Substance use: never Gender identity (if verbalized by the patient): Female Exam Narrative: GENERAL: [Well-appearing, well-nourished, and in no acute distress.] HEAD: [Normocephalic, atraumatic.] EYES: [PERRLA and EOMI.] ENT: Nares clear, no rhinorrhea or epistaxis. Mucous membranes moist. No obvious dental caries, no obvious abscess formation. Tenderness reproducible palpation over tooth number 32 NECK: Supple. CHEST: nonlabored respirations EXTREMITIES: Normal range of motion. [No edema.] SKIN: Warm, dry, no rash. NEURO: [No focal deficits]. Alert and oriented [x3.] PSYCH: [Normal mood and affect.] Course Vital Signs Vital signs: Vital Signs Temperature 36.6 C 02/09/25 02:54 Pulse Rate 74 02/09/25 02:54 Respiratory Rate 17 02/09/25 02:54 Blood Pressure 151/99 H 02/09/25 02:54 Pulse Oximetry 99 02/09/25 02:54 Oxygen Delivery Room Air 02/09/25 02:54 Temperature 36.6 C 02/09/25 02:54 Pulse Rate 74 02/09/25 02:54 Respiratory Rate 17 02/09/25 02:54 Blood Pressure 151/99 H 02/09/25 02:54 Pulse Oximetry 99 02/09/25 02:54 Oxygen Delivery Room Air 02/09/25 02:54 MDM - Dental/Oral MDM Narrative Medical decision making narrative: 24-year-old female presenting with dental pain. She has right lower dental pain where her premolar was them to the localized. She has a tooth extraction scheduled for Monday this week but states heard ibuprofen and Tylenol are not helping with her pain. In triage she endorsed the pain was so bad she felt suicidal but adamantly denies any suicidal ideation and states she loves her life. She states that she does need something for pain control. She has a dentist appointment Monday. No other systemic symptoms. Otherwise doing well. Patient denies any chance of . Patient has done television with obvious pain reproducible on palpation of tooth number 32 but no obvious dental caries or periapical abscess. Patient has her dental was in teeth extraction scheduled for Monday and safe for discharge home with pain control medications. She is given oxycodone here in a short course prescription sent to her pharmacy. Patient given return precautions and safe for discharge. Medical Records Attestation: I reviewed the patient's medical records. Discharge Plan Discharge Clinical Impression: Dentalgia Patient Disposition: Home Condition: Stable Instructions: Antibiotic Form, Toothache (ED) Additional Instructions: Take the pain medicine as needed in addition to Tylenol ibuprofen every 8 hours. Follow-up with the dentist on Monday. Return with any emergencies. Patient Language: Kazakh Prescriptions: New oxycodone 5 mg tablet 5 mg PO Q8H PRN (Reason: pain) Qty: 10 0RF No Action bupropion HCl [Wellbutrin] 100 mg Tablet 100 mg PO DAILY albuterol sulfate 90 mcg/actuation HFA aerosol inhaler 2 puff inhalation QID PRN (Reason: shortness of breath or wheezing) Qty: 8.5 0RF acetaminophen 500 mg tablet 1,000 mg PO TID PRN (Reason: sidney) 7 Days Qty: 42 0RF ibuprofen 800 mg tablet 800 mg PO TID PRN (Reason: pain) 7 Days Qty: 21 0RF norethindrone-e.estradiol-iron [June Fe 24] 1 mg-20 mcg (24)/75 mg (4) tablet 1 tablet PO DAILY Qty: 84 0RF Follow-up/Referrals: Marely,VALENTINO Aquino [Primary Care Provider] - Time of Disposition: 03:17
[2025-02-09] MEDS: oxyCODONE HCL (*CRX) 5 MG TAB IR PO (03:33)
--- OUTSIDE RECORDS SUMMARY | 2025-02-09 03:39 | XMS_ITS | Clinical Summary ---
Author Organization [facility] Address [address] [place] [id number] Care Team Providers Care Stock And Station Agent Name Role Phone Kenia Yap Primary Care Provider [phone] Allergies No known active allergies Encounters Date Type Department Care Team Description 01/08/2025 3:10 PM CDT - 01/08/2025 4:50 PM CDT Emergency [facility] [place] [address] Emery Allen PA Chest Pain Discharge Disposition: [...] 4:17 PM Narrative 01/08/2025 4:19 PM CDT [address] [address] IMAGING STUDIES: XR CHEST PORTABLE DATE: 01/08/2025 [...] Procedure Note Danny Cardoso MD - 01/08/[address] [id number] IMAGING STUDIES: XR CHEST PORTABLEDATE: 01/08/2025 4:01 [...] * POCT urine (01/08/2025 4:04 PM CDT) [facility] URINE HCG TEST NEGATIVE Internal Control: VALID 01/08/2025 4:04 PM CDT Emer[facility] POINT OF CARE TEST ORDERAB LES Final Result * (ABNORMAL) COMPREHENSIVE METABOLIC PANEL (01/08/2025 3:08 PM CDT) [facility] GLUCOSE 83 70 - 99 MG/DL 01/08/2025 3:47 PM CDT [facility] BUN 16 7 - 18 MG/DL 01/08/2025 3:47 PM CDT [facility] CREATININE S/P/B 1.00 0.55 - 1.02 MG/DL 01/08/2025 3:47 PM CDT [facility] SODIUM S/P/B 136 136 - 145 MMOL/L 01/08/2025 3:47 PM CDT [facility] POTASSIUM S/P/B 3.7 3.5 - 5.1 MMOL/L 01/08/2025 3:47 PM CDT [facility] CHLORIDE S/P/B 104 97 - 115 MMOL/L 01/08/2025 3:47 PM CDT [facility] CO2 23.7 21 - 32 MMOL/L 01/08/2025 3:47 PM CDT [facility] CALCIUM S/P/B 9.6 8.5 - 10.1 MG/DL 01/08/2025 3:47 PM CDT [facility] BILIRUBIN TOTAL S/P/B 0.4 0.2 - 1.2 MG/DL 01/08/2025 3:47 PM CDT [facility] Comment: THIS ASSAY IS NOT RECOMMENDED FOR PATIENTS UNDERGOING TREATMENT WITH ELTROMBOPAG DUE TO THE POTENTIAL FOR FALSELY ELEVATED RESULTS. TOTAL PROTEIN S/P/B 8.4(H) 6.4 - 8.2 G/DL 01/08/2025 3:47 PM CDT [facility] ALBUMIN S/P/B 4.5 3.4 - 5.0 G/DL 01/08/2025 3:47 PM CDT [facility] AST 15 15 - 37 U/L 01/08/2025 3:47 PM CDT [facility] ALT 23 14 - 55 U/L 01/08/2025 3:47 PM CDT [facility] ALKALINE PHOSPHATASE S/P/B 61 50 - 136 U/L 01/08/2025 3:47 PM CDT [facility] ANION GAP 8.3 2 - 10 MMOL/L 01/08/2025 3:47 PM CDT [facility] BUN CREATININE RATIO 16.0 6 - 26 01/08/2025 3:47 PM CDT [facility] A/G RATIO 1.2 1.0 - 2.0 RATIO 01/08/2025 3:47 PM CDT [facility] GFR ESTIMATE 81(L) >90 ML/MIN/1.7 3 M2 01/08/2025 3:47 PM CDT [facility] Comment: NOTE: eGFR is not calculated for patients <18 years of age or gender unknown. This is an estimated GFR calculation using the new CKD EPI creatinine equation without race and so does not require a correction factor for race. This estimated GFR should not be used for calculating drug doses. 01/08/2025 3:08 PM CDT us [facility] Final Resu lt [facility] [address] [place] [address], * D-DIMER, QUANTITATIVE (01/08/2025 3:08 PM CDT) D-DIMER <215 0 - 500 ng{FEU}/mL 01/08/2025 4:13 PM CDT [facility] Comment: D-Dimer values less than or [...] negative findings. 01/08/2025 3:08 PM CDT [facility] Final Resu lt [facility] [address] [place] [address], * (ABNORMAL) CBC W/DIFF AUTOMATED (01/08/2025 3:08 PM CDT) WBC 13.03(H) 4.5 - 11.0 x10'3/uL 01/08/2025 3:37 PM CDT [facility] RBC 5.09 4.20 - 5.40 x10'6/uL 01/08/2025 3:37 PM CDT [facility] HGB 14.3 12.0 - 16.0 G/DL 01/08/2025 3:37 PM CDT [facility] HCT 42.6 38.0 - 48.0 % 01/08/2025 3:37 PM CDT [facility] MCV 83.7 81.0 - 99.0 FL 01/08/2025 3:37 PM CDT [facility] MCH 28.1 27.0 - 31.0 PG 01/08/2025 3:37 PM CDT [facility] MCHC 33.6 32.0 - 36.0 G/DL 01/08/2025 3:37 PM CDT [facility] RDW 12.4 11.5 - 14.5 % 01/08/2025 3:37 PM CDT [facility] PLT 404(H) 130 - 400 x10'3/uL 01/08/2025 3:37 PM CDT [facility] MPV 10.0 9.3 - 12.2 FL 01/08/2025 3:37 PM CDT [facility] DIFFERENTIAL TYPE AUTOMATED DIFFERENTIAL 01/08/2025 3:37 PM CDT [facility] NEUTROPHILS % 77.2 % 01/08/2025 3:37 PM CDT [facility] LYMPHOCYTES % 16.0 % 01/08/2025 3:37 PM CDT [facility] MONOCYTES % 4.8 % 01/08/2025 3:37 PM CDT [facility] EOSINOPHILS 1.3 % 01/08/2025 3:37 PM CDT [facility] BASOPHILS 0.4 % 01/08/2025 3:37 PM CDT [facility] IMMATURE GRANS % 0.3 % 01/09/20 3:37 PM CDT [facility] ABS. NEUTROPHILS 10.05(H) 1.80 - 7.70 x10'3/uL 01/08/2025 3:37 PM CDT [facility] ABS. LYMPHOCYTES 2.09 1.00 - 4.80 x10'3/uL 01/08/2025 3:37 PM CDT [facility] ABS. MONOCYTES 0.63 0.24 - 0.86 x10'3/uL 01/08/2025 3:37 PM CDT [facility] ABS. EOSINOPHILS 0.17 0.04 - 0.36 x10'3/uL 01/08/2025 3:37 PM CDT [facility] ABS. BASOPHILS 0.05 0.01 - 0.08 x10'3/uL 01/08/2025 3:37 PM CDT [facility] ABS. IMMATURE GRANULOCYTES 0.04 0.00 - 0.49 x10'3/uL 01/08/2025 3:37 PM CDT [facility] 01/08/2025 3:08 PM CDT [facility] Final Resu lt [facility] [address] [place] [address], [place] [phone] * TROPONIN, QUANT (01/08/2025 3:08 PM CDT) TROPONIN I HIGH SENSITIVITY <3 <54 ng/L 01/08/2025 3:47 PM CDT [facility] Comment: HIGH DOSES OF BIOTIN, TROPONIN-SPECIFIC AUTOANTIBODIES, AND ANTIBODY THERAPY CONTAINING HAMA MAY INTERFERE WITH THIS TEST RESULT. CORRELATION TO CLINICAL HISTORY AND PRESENTATION RECOMMENDED. 01/08/2025 3:08 PM CDT [facility] Final Resu lt [facility] [address] [place] [address], [place] [phone] * ECG 12 lead (01/08/2025 3:01 PM CDT) 01/08/2025 3:01 PM CDT Narrative [facility] - 01/09/2025 3:[address] [facility] [address] Test Date: 2025-01-08 Pat Name: ALAN MORGAN Department: 41 Room: EXAM23 Gender: F Cook Pressure: : 2000 Requested By: EMERY ALLEN Order Number: [id number] Reading MD: Lynn Saxena Measurements Intervals [place] Rate: 75 P: 63 AR: 133 QRS: 64 QRSD: 84 T: 54 QT: 385 QTc: 431 Interpretive Statements SINUS RHYTHM No previous ECG available for comparison Procedure Note Lynn Saxena MD - 01/09/2025 [facility] [address] Test Date: 2025-01-08 Pat Name: ALAN MORGAN Department: 41 Room: EXAM23 Gender: F Cook Pressure: : 2000 Requested By: EMERY ALLEN Order Number: [id number] Reading MD: Lynn Saxena Measurements Intervals [place] Rate: 75 P: 63 AR: 133 QRS: 64 QRSD: 84 T: 54 QT: 385 QTc: 431 Interpretive Statements SINUS RHYTHM No previous ECG available for comparison us Emery JENKINS ECG ORDERABLES Final Resu lt [facility] from Last 3 Months Insurance [facility] Care Teams Stock And Station Agent Relationship Specialty Start Date End Date Kenia Yap PA [address] [place] [address] PCP - General PHYSICIAN AIRLINE PILOT FLIGHT INSTRUCTOR 01/08/25
--- OUTSIDE RECORDS SUMMARY | 2025-02-09 03:39 | XMS_ITS | Clinical Summary ---
Author Organization [facility] Address [address] [place] [address] Care Team Providers Care Automotive Parts Clerk Name Role Phone Unavailable Primary Care Provider Unavailabl e Source Comments [facility],non-owned Affiliates and Associated Physician Practices is amultiple site organization consisting of ambulatory clinics and hospital sitesin [place] and [place]. This disclosure is being madepursuant to the Care Everywhere program and may not contain all information available regarding this patient. 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
[2025-02-09 04:04] VITALS: BP 114/67; PULSE 86; RESP 16; TEMP 36.7; O2SAT 98
== END 2025-02-09 04:06 | disposition home or self-care (01) ==
LOC: ANHED 03:37
PROVIDERS: Emergency Provider Student in an Organized Health Care Education/Training Program; PCP Physician Assistant
DX: K08.89 Other specified disorders of teeth and supporting structures (principal)
CPT/HCPCS: 99283; A9270